=== PATIENT | female | born 1945 | race Caucasian/White ===

== ENCOUNTER → 2021-03-20 | Outpatient (CLI) | payer MEDICARE ==
[~2021-03-20] MED LIST: APIX5TAB PO; ATOR-2 PO; BENA1TAB11 PO; LEVO25TA4 PO; QUET25TA7 PO; SERT100T PO
== END | disposition home or self-care (01) ==
LOC: CVU 14:45
PROVIDERS: ATTEND Internal Medicine Cardiovascular Disease
DX: I08.0 Rheumatic disorders of both mitral and aortic valves (principal); I10 Essential (primary) hypertension; E78.5 Hyperlipidemia, unspecified
CPT/HCPCS: 93306; 93356

== ENCOUNTER 2021-04-18 12:00 | Outpatient (CLI) | payer MEDICARE | END 2021-04-18 23:59 | disposition home or self-care (01) | LOC: CVU 12:00 | PROVIDERS: ATTEND Registered Nurse | DX: I65.22 Occlusion and stenosis of left carotid artery (principal) | CPT/HCPCS: 93880 ==